=== PATIENT | male | born 1940 | race Caucasian/White ===

== ENCOUNTER 2023-11-29 07:59 | Day surgery (SDC) | payer MEDICARE, OTHER ==
[2023-11-29] VITALS (11 sets, daily range): BP systolic 115–147; BP diastolic 62–82; PULSE 64–89; RESP 13–19; TEMP 98.2; O2SAT 96–99
[~2023-11-29] VITALS: Ht 177.8 cm; Wt 89.7 kg
[~2023-11-29 07:59] MED LIST: DABI150C PO; EZET10TA7 PO; GLUC-221 PO; METO-539 PO; MULT-15 PO; OMEP20TA43 PO; SYN0.088T PO
[2023-11-29] MEDS ORDERED: LEVE10006 PO (08:30)
[2023-11-29] MEDS ORDERED: nitroGLYCERIN 0.4mg SUBLingual tab SL PRN ×2 (08:30→12:25)
[2023-11-29] MEDS ORDERED: BACL10TA2 PO (08:30)
[2023-11-29] MEDS ORDERED: APIX5TAB3 PO (08:30)
[2023-11-29] MEDS ORDERED: LORazepam 0.5 MG tablet PO PRN (08:30)
[2023-11-29] MEDS ORDERED: LEVO100T9 PO (08:30)
[2023-11-29] MEDS ORDERED: [UNRECOGNIZED DRUG - CODE] PO (08:30)
[2023-11-29] MEDS ORDERED: DILT120C88 PO (08:31)
[2023-11-29] MEDS ORDERED: CETI10CA PO (08:34)
[2023-11-29] MEDS ORDERED: FEXO180T94 PO (08:34)
[2023-11-29] MEDS ORDERED: PROP10DR3 EACHEYE (08:34)
[2023-11-29] MEDS: normal saline 1,000 ML IV SCH (09:00)
[2023-11-29 09:20] LABS: BASOPHILS # (AUTO) 0.1 X10'3 (0-0.2); BASOPHILS % (AUTO) 0.8 % (0-1); EOSINOPHILS # (AUTO) 0.4 X10'3 (0-0.9); EOSINOPHILS % (AUTO) 5.9 % (0-6); HEMATOCRIT 40.2 % (42.0-52.0); HEMOGLOBIN 13.5 g/dl (14.0-17.9); LYMPHOCYTES # (AUTO) 2.1 X10'3 (1.1-4.8); LYMPHOCYTES % (AUTO) 27.9 % (21-51); MEAN CORPUSCULAR HEMOGLOBIN 32.8 PG (27.0-31.0); MEAN CORPUSCULAR HGB CONC 33.5 g/dL (33.0-36.5); MEAN CORPUSCULAR VOLUME 97.9 FL (78-98); MONOCYTES # (AUTO) 0.7 X10'3 (0-0.9); MONOCYTES % (AUTO) 9.5 % (2-12); NEUTROPHILS # (AUTO) 4.3 X10'3 (1.8-7.7); NEUTROPHILS % (AUTO) 55.9 % (42-75); PLATELET COUNT 188 X10'3 (140-440); RED BLOOD COUNT 4.11 X10'6 (4.70-6.10); RED CELL DISTRIBUTION WIDTH 15.8 % (11.5-14.5); WHITE BLOOD COUNT 7.7 X10'3 (4.5-11.0)
[2023-11-29 09:36] LABS: APTT 27 SECONDS (22-32); PROTHROMBIN TIME 10.4 SECONDS (9.0-12.0)
[2023-11-29] MEDS: diphenhydrAMINE 25mg capsule PO PRN (09:51)
[2023-11-29 09:53] LABS: ALBUMIN 3.5 G/DL (3.4-5.0); ANION GAP 9 (8-16); BLOOD UREA NITROGEN 12 MG/DL (7-18); CALCIUM 8.9 MG/DL (8.5-10.1); CHLORIDE 104 MMOL/L (99-107); CREATININE 0.92 MG/DL (0.60-1.10); GLUCOSE 97 MG/DL (70-104); POTASSIUM 3.8 MMOL/L (3.5-5.1); PRO BRAIN NATRIURETIC PEPTIDE 809 PG/ML (0-450); SODIUM 139 MMOL/L (135-145); TOTAL CARBON DIOXIDE 26.3 MMOL/L (24-32); eCRCL 62 ML/MIN; eGFR 78 ML/MIN
[2023-11-29] MEDS ORDERED: fentaNYL/PF 50MCG/1 ML 2ML syringe ONE (10:10)
[2023-11-29] MEDS ORDERED: iohexol 350MG/ML 100ml bottle IV ONE ×3 (10:10→11:30)
[2023-11-29] MEDS ORDERED: LIDOcaine 1% 30ml preserv. free vial ONE (10:10)
[2023-11-29] MEDS ORDERED: iohexol 350 MG/ML 50ML vial IV ONE (10:10)
[2023-11-29] MEDS ORDERED: midazolam 1 mg/ML 2ml injection ONE (10:10)
[2023-11-29] MEDS ORDERED: HYDROcodone/acetaminophen 5mg/325mg tablet PO PRN (12:25)
[2023-11-29] MEDS ORDERED: OXAZEpam 15mg capsule PO PRN (12:25)
[2023-11-29] MEDS ORDERED: normal saline 1000ml 1,000 ML IV SCH (12:25)
[2023-11-29] MEDS ORDERED: proCHLORperazine 10 MG/2 ml inj IV PRN (12:25)
[2023-11-29] MEDS ORDERED: HYDROcodone/acetaminophen 10/325mg tab PO PRN (12:25)
[2023-11-29] MEDS ORDERED: ondansetron/PF 4mg/2ml inj IV PRN (12:25)
== END 2023-11-29 17:50 | disposition home or self-care (01) ==
LOC: SSTAY O 07:59
PROVIDERS: ATTEND Internal Medicine Cardiovascular Disease
DX: I35.0 Nonrheumatic aortic (valve) stenosis (principal); I25.10 Atherosclerotic heart disease of native coronary artery without angina pectoris; I10 Essential (primary) hypertension; I48.0 Paroxysmal atrial fibrillation; Z86.718 Personal history of other venous thrombosis and embolism; Z86.73 Personal history of transient ischemic attack (TIA), and cerebral infarction without residual deficits; Z88.8 Allergy status to other drugs, medicaments and biological substances
CPT/HCPCS: 36415; 71046; 80048; 82948; 83880; 85025; 85610; 85730; 93005; 93458; 93567; 99152; 99153; A4615; A6258; C1760; C1769; J1644; J2001; J2250; J3010; J7030; Q0163; Q9967; Z7610; 75630; J3490

== ENCOUNTER → 2023-12-28 | Outpatient (CLI) | payer MEDICARE, OTHER ==
[~2023-12-28] MED LIST changes: +APIX5TAB3 PO; +BACL10TA2 PO; +CETI10CA PO; -DABI150C PO; +DILT120C88 PO; +FEXO180T94 PO; +IODIXANOL 320 MG/ML INFUS..BTL 100ML IV ONE; +LEVE10006 PO; +LEVO100T9 PO; -METO-539 PO; +PROP10DR3 EACHEYE; -SYN0.088T PO; +[UNRECOGNIZED DRUG - CODE] PO
[2023-12-28 09:58] LABS: BASOPHILS # (AUTO) 0.1 X10'3 (0-0.2); BASOPHILS % (AUTO) 0.9 % (0-1); EOSINOPHILS # (AUTO) 0.4 X10'3 (0-0.9); EOSINOPHILS % (AUTO) 6.2 % (0-6); HEMATOCRIT 41.3 % (42.0-52.0); HEMOGLOBIN 13.9 g/dl (14.0-17.9); LYMPHOCYTES # (AUTO) 1.8 X10'3 (1.1-4.8); LYMPHOCYTES % (AUTO) 25.5 % (21-51); MEAN CORPUSCULAR HGB CONC 33.7 g/dL (33.0-36.5); MEAN CORPUSCULAR VOLUME 97.9 FL (78-98); MEAN PLATELET VOLUME 8.3 FL (7.4-10.4); MONOCYTES # (AUTO) 0.7 X10'3 (0-0.9); MONOCYTES % (AUTO) 10.3 % (2-12); NEUTROPHILS % (AUTO) 57.1 % (42-75); PLATELET COUNT 175 X10'3 (140-440); RED BLOOD COUNT 4.22 X10'6 (4.70-6.10); RED CELL DISTRIBUTION WIDTH 15.4 % (11.5-14.5)
[2023-12-28 10:09] LABS: APTT 29 SECONDS (22-32); PROTHROMBIN TIME 10.9 SECONDS (9.0-12.0)
[2023-12-28 10:10] LABS: ALANINE AMINOTRANSFERASE 31 U/L (12-78); ALBUMIN 3.6 G/DL (3.4-5.0); ALBUMIN/GLOBULIN RATIO 0.8 (1.1-1.5); ALKALINE PHOSPHATASE 151 IU/L (46-116); ANION GAP 8 (8-16); ASPARTATE AMINO TRANSFERASE 31 U/L (10-37); BILIRUBIN,TOTAL 0.6 MG/DL (0.1-1.0); BLOOD UREA NITROGEN 13 MG/DL (7-18); BUN/CREATININE RATIO 13.3 (10.0-20.0); CHLORIDE 103 MMOL/L (99-107); CREATININE 0.98 MG/DL (0.60-1.10); GLUCOSE 168 MG/DL (70-104); POTASSIUM 3.7 MMOL/L (3.5-5.1); SODIUM 137 MMOL/L (135-145); TOTAL CARBON DIOXIDE 25.9 MMOL/L (24-32); eGFR 73 ML/MIN
== END | disposition home or self-care (01) ==
LOC: RAD 09:27
PROVIDERS: ATTEND Internal Medicine Cardiovascular Disease
DX: I65.23 Occlusion and stenosis of bilateral carotid arteries (principal); I35.0 Nonrheumatic aortic (valve) stenosis; R06.02 Shortness of breath; I34.81 Nonrheumatic mitral (valve) annulus calcification; M47.815 Spondylosis without myelopathy or radiculopathy, thoracolumbar region; I51.7 Cardiomegaly; K57.30 Diverticulosis of large intestine without perforation or abscess without bleeding; Z90.49 Acquired absence of other specified parts of digestive tract
CPT/HCPCS: 36415; 71275; 74174; 75572; 80053; 85025; 85610; 85730; 93880; C8929; Q9967; 93306